=== PATIENT | male | born 1975 | race Caucasian/White ===

== ENCOUNTER 2018-01-02 04:23 | Emergency (ER) | payer BC ==
[2018-01-02 04:30] VITALS: BMI 39.4
[2018-01-02] MEDS ORDERED: NS 1000 ML 1,000 ML ONE ×2 (04:31→05:50)
[2018-01-02] MEDS ORDERED: ZOFRAN INJ 4 MG VIAL ONE (04:31)
[2018-01-02] MEDS ORDERED: NS 1000 ML 1,000 ML IV ONE ×2 (04:31→05:35)
[2018-01-02] MEDS ORDERED: ZOFRAN INJ 4 MG VIAL IVP ONE (04:31)
[2018-01-02] MEDS ORDERED: TORADOL 30 MG VIAL ONE (04:31)
[2018-01-02] MEDS ORDERED: TORADOL 30 MG VIAL IVP ONE (04:31)
[2018-01-02] MEDS ORDERED: DILAUDID INJ ONE (04:42)
[2018-01-02] MEDS ORDERED: DILAUDID INJ IVP ONE (04:42)
[2018-01-02 05:08] LABS: BILIRUBIN,URINE NEGATIVE (NEGATIVE); BLOOD/HEMOGLOBIN,URINE 2+ (NEGATIVE); GLUCOSE, URINE 4+ (NEGATIVE); KETONES,URINE NEGATIVE (NEGATIVE); LEUKOCYTE ESTERASE ,URINE NEGATIVE (NEGATIVE); NITRITES,URINE NEGATIVE (NEGATIVE); PROTEIN,URINE NEGATIVE (NEGATIVE); UROBILINOGEN,URINE NORMAL (NORMAL)
--- NOTE | 2018-01-02 05:22 | CT ---
CT abdomen and pelvis without contrast Indication: Right flank pain Comparison: 01/02/2016 Technique: CT images of the abdomen and pelvis were obtained without contrast. Automatic exposure con trol was utilized. Findings: Aside from minimal atelectasis, the lung bases are clear. No aggressive osseous lesions. Previous cholecystectomy. Within noncontrast limitations, the liver, spleen, stomach, duodenum, pancr eas, and adrenals demonstrate no significant abnormality. Multiple subcentimeter bilateral renal shamika ecting system stones are similar to the prior study. There is minimal right-sided hydroureteronephros is with a 4 mm calculus at the ureterovesicular junction. No left-sided hydronephrosis or left ureter al stone. No significant thickening or dilatation of the lower GI tract. Normal appendix. There is small to mod erate fat containing umbilical hernia. The urinary bladder is mostly collapsed. The rectum and prosta te are unremarkable. No free fluid or adenopathy. Impression: Minimal right hydroureteronephrosis secondary to an obstructing 4 mm UVJ stone. Small bilateral renal stones. Reported By:
[2018-01-02 05:24] LABS: APPEARANCE,URINE CLEAR (CLEAR); BACTERIA,URINE NEGATIVE /HPF (NEGATIVE); COLOR,URINE PALE YELLOW (YELLOW); SQUAMOUS EPITHELIAL CELL,UR FEW /HPF (NEGATIVE)
[2018-01-02] MEDS ORDERED: FLOMAX PO ONE (05:34)
[2018-01-02 05:56] LABS: BASOPHILS % (AUTO) 0.5 % (0.2-1.0); EOSINOPHILS # (AUTO) 0.1 x10^3/uL (0.0-0.2); EOSINOPHILS % (AUTO) 1.7 % (0.9-2.9); HEMATOCRIT 43.8 % (42.0-54.0); HEMOGLOBIN 14.8 g/dL (13.5-18.0); LYMPHOCYTES # (AUTO) 1.8 X10^3/uL (1.3-2.9); MEAN CORPUSCULAR HEMOGLOBIN 28.2 pg (27.0-34.0); MEAN CORPUSCULAR HGB CONC 33.7 g/dL (33.0-35.0); MEAN CORPUSCULAR VOLUME 83.5 fL (80.0-100.0); MEAN PLATELET VOLUME 9.8 fL (7.4-11.0); MONOCYTES # (AUTO) 0.7 x10^3/uL (0.3-0.8); MONOCYTES % (AUTO) 9.7 % (0.0-13.0); NEUTROPHILS # (AUTO) 4.9 x10^3/uL (2.2-4.8); NEUTROPHILS % (AUTO) 64.1 % (42.0-75.0); PLATELET COUNT 164 X10^3/uL (150.0-450.0); RED BLOOD COUNT 5.25 X10^6/uL (4.7-6.0); RED CELL DISTRIBUTION WIDTH 13.7 % (11.6-16.5); WHITE BLOOD COUNT 7.7 X10^3/uL (3.6-10.0)
[2018-01-02 06:05] LABS: ALANINE AMINOTRANSFERASE 44 Units/L (12-78); ALKALINE PHOSPHATASE 146 Units/L (46-116); ASPARTATE AMINO TRANSFERASE 33 Units/L (15-37); BLOOD UREA NITROGEN 9 mg/dL (7-18); CALCIUM 7.7 mg/dL (8.5-10.1); CARBON DIOXIDE 25.9 mmol/L (21-32); CHLORIDE 104 mmol/L (98-107); COR CA(FOR HYPOALB) 8.5 mg/dL (8.5-10.1); COR NA(FOR HYPERGLY) 141 mmol/L (136-145); CREATININE 1.32 mg/dL (0.70-1.30); SODIUM 137 mmol/L (136-145); TOTAL PROTEIN 7.2 g/dL (6.4-8.2); eGFR BLACK RACES > 60 (>60); eGFR NON BLACK RACES > 60 (>60)
--- NOTE | 2018-01-02 06:22 | DR.GENAD ---
HPI - PCP Primary Care Physician: ijeoma yeboah - HPI Comment HPI Comment: PAIN SIMILAR TO PREVIOUS KIDNEY STONE PAIN. DENIES HEMATURIA. - Complaint/Symptoms Chief Complaint Doctors Comments: RIGHT FLANK PAIN TIMES 1HR WITH NAUSEA. Chief Complaint:: right flank pain o/s 1 hr ago, denies hematuria, hx of kidneys stones, n/v - Nurses notes reviewed Nurses Notes Review: Yes - Source History Provided: Patient - Mode of Arrival Mode of Arrival: Ambulatory - Timing Onset of Chief Complaint: 01/02/18 Came on: Suddenly - Duration Duration: Constant Duration: Days - Severity Severity: Moderate PMH - PMH Past Medical History: Yes Past Medical History: Diabetes, Hypertension, Kidney Stones Past Surgical History: Yes Surgical History: Cholecystectomy - Family History History of Family Medical Conditions: Yes Family Medical History: Diabetes Mellitus, Cancer, Coronary Artery Disease, Hypertension - Social History Does patient currently use any type of tobacco product: No Have you used tobacco products in the last 12 months: No Type of Tobacco Use: None Does any household member use tobacco: No Alcohol Use: None Do you use any recreational Drugs:: No Lives With: Family Lives Where: Home - infectious screening Have you traveled outside the country in the last 6 months?: No Isolation: Standard ROS - Review of Systems Constitutional: No Symptoms Reported. negative: Chills, Fever Eyes: No Symptoms Reported ENTM: No Symptoms Reported Respiratoy: No Symptoms Reported Cardiovascular: No Symptoms Reported Gastrointestinal/Abdominal: No Symptoms Reported Genitourinary: No Symptoms Reported Neurological: No Symptoms Reported Musculoskeletal: Back Pain (RT FLANK PAIN) Integumentary: No Symptoms Reported Hematologic/Lymphatic: No Symptoms Reported Endocrine: No Symptoms Reported All Other Systems: Reviewed and Negative PE - Vital Signs Vitals: Pulse Rate [Left Brachial] 74 Pulse Rate 64 Respiratory Rate 18 Blood Pressure [Left Arm] 125/75 Blood Pressure [Right Arm] 137/77 Blood Pressure 144/83 O2 Sat by Pulse Oximetry 95 - General Limitations: No Limitations General Appearance: Alert - Head Head Exam: Normal Inspection - Eyes Eye exam: Normal Appearance - ENT ENT Exam: Normal External Ear Exam External Ear Exam: Normal External Inspection TM/Canal Exam: Bilateral Normal Nose Exam: Normal Nose Exam Mouth Exam: Normal Inspection Throat Exam: Normal Inspection - Neck Neck Exam: Trachea Midline - Chest Chest Inspection: Symmetric Chest Wall Rise - Respiratory Respiratory Exam: Normal Lung Sounds Bilat Respiratory Exam: Bilateral Clear to Auscultation - Cardiovascular Cardiovascular Exam: Regular Rate, Normal Rhythm, Normal Heart Sounds - Abdominal Exam Abdominal Exam: Normal Bowel Sounds, Soft. negative: Tenderness - Extremities Extremities Exam: Normal Inspection - Back Back Exam: (R) CVA Tenderness - Neurologic Neurological Exam: Alert, Oriented X3 - Psychiatric Psychiatric Exam: Normal Affect, Normal Mood - Skin Skin Exam: Normal Color MDM - Differential Diagnosis Differential Diagnosis: KIDNEY STONE, UTI, MUSCULOSKELETAL PAIN Course - Treatment Treatment: SEE ORDERS. - Reevaluation 1st: Improved (IV PAIN MED IN ED.) - Education/Counseling Education/Counseling: Patient, Education Educated On: Diagnosis, Needs for Follow Up ROR - Labs Reviewed Laboratory Results Reviewed?: Yes Result Diagrams: 01/02/18 05:45 01/02/18 05:45 Laboratory: WBC 7.7 X10^3/uL (3.6-10.0) 01/02/18 05:45 RBC 5.25 X10^6/uL (4.7-6.0) 01/02/18 05:45 Hgb 14.8 g/dL (13.5-18.0) 01/02/18 05:45 Hct 43.8 % (42.0-54.0) 01/02/18 05:45 MCV 83.5 fL (80.0-100.0) 01/02/18 05:45 MCH 28.2 pg (27.0-34.0) 01/02/18 05:45 MCHC 33.7 g/dL (33.0-35.0) 01/02/18 05:45 RDW 13.7 % (11.6-16.5) 01/02/18 05:45 Plt Count 164 X10^3/uL (150.0-450.0) 01/02/18 05:45 MPV 9.8 fL (7.4-11.0) 01/02/18 05:45 Neut % (Auto) 64.1 % (42.0-75.0) 01/02/18 05:45 Lymph % (Auto) 24.0 % (21.0-51.0) 01/02/18 05:45 [place] % (Auto) 9.7 % (0.0-13.0) 01/02/18 05:45 Eos % (Auto) 1.7 % (0.9-2.9) 01/02/18 05:45 Baso % (Auto) 0.5 % (0.2-1.0) 01/02/18 05:45 Neut # (Auto) 4.9 x10^3/uL (2.2-4.8) H 01/02/18 05:45 Lymph # (Auto) 1.8 X10^3/uL (1.3-2.9) 01/02/18 05:45 [place] # (Auto) 0.7 x10^3/uL (0.3-0.8) 01/02/18 05:45 Eos # (Auto) 0.1 x10^3/uL (0.0-0.2) 01/02/18 05:45 Baso # (Auto) 0.0 X10^3/uL (0.0-0.1) 01/02/18 05:45 Absolute Nucleated RBC 0.1 /100WBC 01/02/18 05:45 Sodium 137 mmol/L (136-145) 01/02/18 05:45 Corrected Sodium 141 mmol/L (136-145) 01/02/18 05:45 Potassium 4.5 mmol/L (3.5-5.1) 01/02/18 05:45 Chloride 104 mmol/L (98-107) 01/02/18 05:45 Carbon Dioxide 25.9 mmol/L (21-32) 01/02/18 05:45 BUN 9 mg/dL (7-18) 01/02/18 05:45 Creatinine 1.32 mg/dL (0.70-1.30) H 01/02/18 05:45 Est GFR (MDRD) Af Amer > 60 (>60) 01/02/18 05:45 Est GFR (MDRD) Non-Af > 60 (>60) 01/02/18 05:45 Glucose 249 mg/dL (65-99) H 01/02/18 05:45 Calcium 7.7 mg/dL (8.5-10.1) L 01/02/18 05:45 Corrected Calcium 8.5 mg/dL (8.5-10.1) 01/02/18 05:45 Total Bilirubin 0.40 mg/dL (0.2-1.0) 01/02/18 05:45 AST 33 Units/L (15-37) 01/02/18 05:45 ALT 44 Units/L (12-78) 01/02/18 05:45 Alkaline Phosphatase 146 Units/L (46-116) H 01/02/18 05:45 Total Protein 7.2 g/dL (6.4-8.2) 01/02/18 05:45 Albumin 3.0 g/dL (3.4-5.0) L 01/02/18 05:45 Globulin 4.2 g/dL (2.5-4.5) 01/02/18 05:45 Albumin/Globulin Ratio 0.7 Ratio (1.1-2.1) L 01/02/18 05:45 Specimen Type Clean catch urine 01/02/18 04:30 Urine Color Pale yellow (YELLOW) 01/02/18 04:30 Urine Appearance Clear (CLEAR) 01/02/18 04:30 Urine pH 5.0 (5.0 - 8.0) 01/02/18 04:30 Ur Specific [place] 1.020 (1.000-1.030) 01/02/18 04:30 Urine Protein Negative (NEGATIVE) 01/02/18 04:30 Urine Glucose (UA) 4+ (NEGATIVE) 01/02/18 04:30 Urine Ketones Negative (NEGATIVE) 01/02/18 04:30 Urine Occult Blood 2+ (NEGATIVE) 01/02/18 04:30 Urine Nitrite Negative (NEGATIVE) 01/02/18 04:30 Urine Bilirubin Negative (NEGATIVE) 01/02/18 04:30 Urine Urobilinogen Normal (NORMAL) 01/02/18 04:30 Ur Leukocyte Esterase Negative (NEGATIVE) 01/02/18 04:30 Urine RBC 5-10 /HPF (NONE SEEN) 01/02/18 04:30 Urine WBC None seen /HPF (NONE SEEN) 01/02/18 04:30 Ur Squamous Epith Cells Few /HPF (NEGATIVE) 01/02/18 04:30 Urine Bacteria Negative /HPF (NEGATIVE) 01/02/18 04:30 Ur Culture Indicated? No/not indicated 01/02/18 04:30 - XRAY XRAY Interpreted by: Radiologist XRAY Findings: REPORT DISCUSS WITH PATIENT. - Diagnosis Discharge Problem: Ureteral stone, Flank pain, Kidney stone - Discharge Plan Disposition: 01 HOME, SELF-CARE Condition: Stable Prescriptions: Hydrocodone-Acet 7.5 mg/325 mg [[place] 7.5/325 mg Tab] 1 tab PO Q6H PRN #15 tab PRN Reason: Pain Ketorolac Tromethamine [Toradol Tab] 10 mg PO Q8H PRN #20 tab PRN Reason: Pain Tamsulosin HCl [Flomax] 0.4 mg PO DAILY PRN #20 cap PRN Reason: - Follow ups/Referrals Follow ups/Referrals: CLARISSA LLAMAS [REFERRING] - 3 days NFD,None [Primary Care Provider] - 3 days - Instructions Instructions: Kidney Stones, [id number], Flank Pain, Adult, [id number] Additional Instructions: RETURN TO ED IF WORSE. FOLLOW UP WITH UROLOGIST DIAMOND.
[2018-01-02 06:58] VITALS: BP 125/75
== END 2018-01-02 06:58 | disposition home or self-care (01) ==
LOC: ER 04:23
DX: N20.0 Calculus of kidney (principal); N20.1 Calculus of ureter; R10.84 Generalized abdominal pain
CPT/HCPCS: 36415; 74176; 80053; 81001; 85025; 96365; 96367; 96374; 96375; 99283; 99284; A4222; J1170; J1885; J2405

== ENCOUNTER 2018-01-16 16:59 | Emergency (ER) | payer BC ==
[2018-01-16 17:05] VITALS: BP 171/95; BMI 39.7
[2018-01-16] MEDS ORDERED: NS 1000 ML 1,000 ML ONE (18:33)
[2018-01-16] MEDS ORDERED: NS 1000 ML 1,000 ML IV ONE (18:42)
[2018-01-16] MEDS ORDERED: TORADOL 30 MG VIAL IVP ONE (18:42)
[2018-01-16] MEDS ORDERED: ZOFRAN INJ 4 MG VIAL IVP ONE (18:42)
[2018-01-16] MEDS ORDERED: ZOFRAN INJ 4 MG VIAL ONE ×2 (18:44→18:45)
[2018-01-16] MEDS ORDERED: TORADOL 30 MG VIAL ONE (18:45)
--- NOTE | 2018-01-16 18:47 | DR.MBACK ---
HPI - Time Seen Time seen: 18:40 - PCP Primary Care Physician: RADHA DAWKINS - HPI Comment HPI Comment: PAIN STARTED TONIGHT. RECENT KIDNEY STONE. MISS APPOINTMENT THIS WEEK WITH THE UROLOGIST. ALSO HAVE GOUT ATTACK ON MED. THIS ALSO FLARE UP TODAY. NO FEVER OR HEMATURIA OR DYSURIA. - Complaint Chief Complaint Doctors Comments: RIGHT FLANK AND LOWER ABDOMINAL PAIN. Chief Complaint:: PATIENT HAS HAD A KIDNEY STONE FOR TWO WEEKS BUT MISSED HIS APPOINTMENT WITH UROLOGY. HE STATED THE PAIN JUST CAME BACK 1 HOUR AGO. - Reviewed Nurses Notes Review: Yes - Source History Provided: Patient - Mode of Arrival Mode of Arrival: Ambulatory - Timing Onset of Chief Complaint: 01/16/18 - Duration Duration: Constant Duration: Hours - Location Back Pain Location: Left, Flank (LLQ ABD.) Radiation To: None - Severity Severity: Moderate - Quality Quality: Sharp - Context Onset: Spontaneous History of: None - Modifying Factors Worsened By: None - Associated Signs and Symptoms Back Pain Symptoms: Nausea, Abdominal Pain PMH - PMH Past Medical History: Yes Past Medical History: Diabetes, Hypertension, Kidney Stones Past Surgical History: Yes Surgical History: Cholecystectomy - Family History History of Family Medical Conditions: Yes Family Medical History: Diabetes Mellitus, Cancer, Coronary Artery Disease, Hypertension - Social History Does patient currently use any type of tobacco product: No Have you used tobacco products in the last 12 months: No Type of Tobacco Use: None Does any household member use tobacco: No Do you use any recreational Drugs:: No Lives With: Family Lives Where: Home - infectious screening In the last 2 months have you had wt loss of >10#?: NO Have you had fever, night sweats or hemotysis?: No Have you traveled outside the country in the last 6 months?: No Isolation: Standard ROS - Review of Systems Constitutional: No Symptoms Reported Eyes: No Symptoms Reported ENTM: No Symptoms Reported Respiratoy: No Symptoms Reported Cardiovascular: No Symptoms Reported Gastrointestinal/Abdominal: Abdominal Pain, Nausea Genitourinary: Pain, Other (LT FLANK PAIN). negative: Dysuria, Hematuria Neurological: No Symptoms Reported Musculoskeletal: Foot Integumentary: No Symptoms Reported Hematologic/Lymphatic: No Symptoms Reported Endocrine: No Symptoms Reported All Other Systems: Reviewed and Negative PE - Vital Signs Vitals: Temperature 97.7 F Pulse Rate 87 Respiratory Rate 20 Blood Pressure [Left Arm] 125/75 Blood Pressure [Right Arm] 137/77 Blood Pressure 171/95 O2 Sat by Pulse Oximetry 99 - General Limitations: No Limitations General Appearance: Alert - Head Head Exam: Normal Inspection - Eyes Eye exam: Normal Appearance - ENT ENT Exam: Normal External Ear Exam - Chest Chest Inspection: Symmetric Chest Wall Rise - Respiratory Respiratory Exam: Normal Lung Sounds Bilat Respiratory Exam: Bilateral Clear to Auscultation - Cardiovascular Cardiovascular Exam: Regular Rate, Normal Rhythm, Normal Heart Sounds - Abdominal Exam Abdominal Exam: Normal Bowel Sounds, Soft, Tenderness Abdominal Tenderness: LLQ - Rectal Rectal Exam: Deferred - Genitourinary Exam: Male: Deferred - Extremities Extremities Exam: Tenderness (FOOT INFLAME.) - Back Back Exam: Normal Inspection - Neurological Neurological Exam: Alert, Oriented X3 - Psychiatric Psychiatric Exam: Normal Affect, Normal Mood - Skin Skin Exam: Normal Color MDM - Additional Information Additional Information Obtained From: Family (GOUT) - Differential Diagnosis Differential Diagnosis: Pyelonephritis, Urinary Obstruction, Urolithiasis Course - Treatment Treatment: SEE ORDERS. IV FLUIDS AND IV MEDS IN ED. - Reevaluation 1st: Improved - Education/Counseling Education/Counseling: Patient, Family, Education Educated On: Diagnosis, Needs for Follow Up ROR - Labs Reviewed Laboratory Results Reviewed?: Yes Result Diagrams: 01/16/18 18:55 01/16/18 18:55 Laboratory: WBC 10.6 X10^3/uL (3.6-10.0) H 01/16/18 18:55 RBC 5.46 X10^6/uL (4.7-6.0) 01/16/18 18:55 Hgb 15.3 g/dL (13.5-18.0) 01/16/18 18:55 Hct 45.3 % (42.0-54.0) 01/16/18 18:55 MCV 82.9 fL (80.0-100.0) 01/16/18 18:55 MCH 28.0 pg (27.0-34.0) 01/16/18 18:55 MCHC 33.8 g/dL (33.0-35.0) 01/16/18 18:55 RDW 13.5 % (11.6-16.5) 01/16/18 18:55 Plt Count 186 X10^3/uL (150.0-450.0) 01/16/18 18:55 MPV 9.1 fL (7.4-11.0) 01/16/18 18:55 Neut % (Auto) 53.1 % (42.0-75.0) 01/16/18 18:55 Lymph % (Auto) 33.7 % (21.0-51.0) 01/16/18 18:55 [place] % (Auto) 10.0 % (0.0-13.0) 01/16/18 18:55 Eos % (Auto) 2.5 % (0.9-2.9) 01/16/18 18:55 Baso % (Auto) 0.7 % (0.2-1.0) 01/16/18 18:55 Neut # (Auto) 5.6 x10^3/uL (2.2-4.8) H 01/16/18 18:55 Lymph # (Auto) 3.6 X10^3/uL (1.3-2.9) H 01/16/18 18:55 [place] # (Auto) 1.1 x10^3/uL (0.3-0.8) H 01/16/18 18:55 Eos # (Auto) 0.3 x10^3/uL (0.0-0.2) H 01/16/18 18:55 Baso # (Auto) 0.1 X10^3/uL (0.0-0.1) 01/16/18 18:55 Absolute Nucleated RBC 0.1 /100WBC 01/16/18 18:55 Sodium 142 mmol/L (136-145) 01/16/18 18:55 Corrected Sodium 143 mmol/L (136-145) 01/16/18 18:55 Potassium 3.9 mmol/L (3.5-5.1) 01/16/18 18:55 Chloride 106 mmol/L (98-107) 01/16/18 18:55 Carbon Dioxide 25.5 mmol/L (21-32) 01/16/18 18:55 BUN 9 mg/dL (7-18) 01/16/18 18:55 Creatinine 1.38 mg/dL (0.70-1.30) H 01/16/18 18:55 Est GFR (MDRD) Af Amer > 60 (>60) 01/16/18 18:55 Est GFR (MDRD) Non-Af 60 (>60) 01/16/18 18:55 Glucose 128 mg/dL (65-99) H 01/16/18 18:55 Uric Acid 3.4 mg/dL (3.5-7.2) L 01/16/18 18:55 Calcium 8.3 mg/dL (8.5-10.1) L 01/16/18 18:55 Corrected Calcium TNP 01/16/18 18:55 Total Bilirubin 0.40 mg/dL (0.2-1.0) 01/16/18 18:55 AST 65 Units/L (15-37) H 01/16/18 18:55 ALT 71 Units/L (12-78) 01/16/18 18:55 Alkaline Phosphatase 169 Units/L (46-116) H 01/16/18 18:55 Total Protein 7.8 g/dL (6.4-8.2) 01/16/18 18:55 Albumin 3.4 g/dL (3.4-5.0) 01/16/18 18:55 Globulin 4.4 g/dL (2.5-4.5) 01/16/18 18:55 Albumin/Globulin Ratio 0.8 Ratio (1.1-2.1) L 01/16/18 18:55 Specimen Type Clean catch urine 01/16/18 20:33 Urine Color Yellow (YELLOW) 01/16/18 20:33 Urine Appearance Clear (CLEAR) 01/16/18 20:33 Urine pH 5.0 (5.0 - 8.0) 01/16/18 20:33 Ur Specific [place] 1.015 (1.000-1.030) 01/16/18 20:33 Urine Protein Negative (NEGATIVE) 01/16/18 20:33 Urine Glucose (UA) Negative (NEGATIVE) 01/16/18 20:33 Urine Ketones Negative (NEGATIVE) 01/16/18 20:33 Urine Occult Blood 5+ (NEGATIVE) 01/16/18 20:33 Urine Nitrite Negative (NEGATIVE) 01/16/18 20:33 Urine Bilirubin Negative (NEGATIVE) 01/16/18 20:33 Urine Urobilinogen Normal (NORMAL) 01/16/18 20:33 Ur Leukocyte Esterase Negative (NEGATIVE) 01/16/18 20:33 Urine RBC 10-20 /HPF (NONE SEEN) 01/16/18 20:33 Urine WBC 0-2 /HPF (NONE SEEN) 01/16/18 20:33 Ur Squamous Epith Cells Few /HPF (NEGATIVE) 01/16/18 20:33 Urine Bacteria Negative /HPF (NEGATIVE) 01/16/18 20:33 Ur Culture Indicated? No/not indicated 01/16/18 20:33 - XRAY XRAY Interpreted by: Radiologist XRAY Findings: REPORT DISCUSS WITH PATIENT. - Diagnosis Discharge Problem: Flank pain, Kidney stone Gout attack Qualifiers: Gout site: toe Gout etiology: unspecified cause Laterality: right Qualified Code(s): M10.9 - Gout, unspecified - Discharge Plan Disposition: HOME, SELF-CARE Condition: Stable Prescriptions: Hydrocodone-Acet 7.5 mg/325 mg [[place] 7.5/325 mg Tab] 1 tab PO Q6H PRN #15 tab PRN Reason: Pain Ketorolac Tromethamine [Toradol Tab] 10 mg PO Q8H PRN #12 tab PRN Reason: Pain Ondansetron [Zofran ODT 8 mg] 8 mg PO Q8H PRN #12 tab PRN Reason: Nausea/Vomiting Tamsulosin HCl [Flomax] 0.4 mg PO DAILY #30 cap - Follow ups/Referrals Follow ups/Referrals: MIRIAN DAWKINS [Primary Care Provider] - 3 days PATSY DISLA [CONSULTING PHYSICIAN] - 01/19/18 - Instructions Instructions: Kidney Stones, [id number], Flank Pain, Adult, [id number]
[2018-01-16 19:04] LABS: BASOPHILS # (AUTO) 0.1 X10^3/uL (0.0-0.1); BASOPHILS % (AUTO) 0.7 % (0.2-1.0); EOSINOPHILS # (AUTO) 0.3 x10^3/uL (0.0-0.2); EOSINOPHILS % (AUTO) 2.5 % (0.9-2.9); HEMATOCRIT 45.3 % (42.0-54.0); HEMOGLOBIN 15.3 g/dL (13.5-18.0); LYMPHOCYTES # (AUTO) 3.6 X10^3/uL (1.3-2.9); LYMPHOCYTES % (AUTO) 33.7 % (21.0-51.0); MEAN CORPUSCULAR HGB CONC 33.8 g/dL (33.0-35.0); MEAN CORPUSCULAR VOLUME 82.9 fL (80.0-100.0); MEAN PLATELET VOLUME 9.1 fL (7.4-11.0); MONOCYTES # (AUTO) 1.1 x10^3/uL (0.3-0.8); NEUTROPHILS # (AUTO) 5.6 x10^3/uL (2.2-4.8); NEUTROPHILS % (AUTO) 53.1 % (42.0-75.0); PLATELET COUNT 186 X10^3/uL (150.0-450.0); RED BLOOD COUNT 5.46 X10^6/uL (4.7-6.0); RED CELL DISTRIBUTION WIDTH 13.5 % (11.6-16.5); WHITE BLOOD COUNT 10.6 X10^3/uL (3.6-10.0)
[2018-01-16 19:22] LABS: ALANINE AMINOTRANSFERASE 71 Units/L (12-78); ALBUMIN 3.4 g/dL (3.4-5.0); ALKALINE PHOSPHATASE 169 Units/L (46-116); ASPARTATE AMINO TRANSFERASE 65 Units/L (15-37); BLOOD UREA NITROGEN 9 mg/dL (7-18); CALCIUM 8.3 mg/dL (8.5-10.1); CARBON DIOXIDE 25.5 mmol/L (21-32); CHLORIDE 106 mmol/L (98-107); COR NA(FOR HYPERGLY) 143 mmol/L (136-145); CREATININE 1.38 mg/dL (0.70-1.30); SODIUM 142 mmol/L (136-145); TOTAL PROTEIN 7.8 g/dL (6.4-8.2); eGFR BLACK RACES > 60 (>60); eGFR NON BLACK RACES 60 (>60)
--- NOTE | 2018-01-16 19:22 | CT ---
Indication: Pain Exam: CT abdomen and pelvis without contrast. Technique: Axial spiral images were obtained from lung bases through the pubic symphysis without cont rast. Automated does control was utilized. Coronal and sagittal multiplanar reconstructions were perf ormed. Comparison: 01/02/2018 Findings: The hazy subsegmental opacities along the lung bases posteriorly which is unchanged the crow er is normal size with fatty replacement throughout. The gallbladder has been removed and there are p unctate air collections in the central biliary tree with smaller amounts of air scattered in the comm on bile duct distally which was not seen on the prior studies . There is no significant biliary duct dilatation. The pancreas is atrophic with no pancreatic mass or inflammation. The adrenals are normal . The kidneys are normal size with numerous renal stones scattered in both kidneys with the largest m easuring 7 mm along the upper pole the right which is unchanged. There are several small stones scatt ered in the left kidney measuring 3-4 mm which are unchanged. No hydronephrosis is seen. There is sli ght prominence of the right ureter proximally which unchanged with a 5 mm stone lodged in the distal right ureter, 1-2 cm above the bladder wall . . There are some small 3-4 mm calcifications along the bladder wall posteriorly which are more apparent. The prostate gland is mildly enlarged. There is a 2 cm umbilical hernia which is unchanged with no bowel loops in the hernia . No adenopathy or ascites is seen. The appendix is not well visualized. The bones are intact. Impression: 5 mm stone lodged in the distal right ureter which may represent a recurrent stone or possible stone which has migrated proximally in the ureter. The stone is only causing minimal obstruction which is n ot significantly changed. Recommend clinical follow-up. Multiple renal stones bilaterally with no significant hydronephrosis which is unchanged. Probable small bladder stones which are more apparent. Previous cholecystectomy and a small amount of pneumobilia which is more apparent and is probably jus t due to previous manipulation of the duct common duct . Recommend clinical correlation correlating w ith lab values. Mild discoid atelectasis or scarring along the lung bases . Small umbilical hernia which is unchanged. Reported By:
[2018-01-16 20:50] LABS: BILIRUBIN,URINE NEGATIVE (NEGATIVE); BLOOD/HEMOGLOBIN,URINE 5+ (NEGATIVE); GLUCOSE, URINE NEGATIVE (NEGATIVE); KETONES,URINE NEGATIVE (NEGATIVE); LEUKOCYTE ESTERASE ,URINE NEGATIVE (NEGATIVE); NITRITES,URINE NEGATIVE (NEGATIVE); PROTEIN,URINE NEGATIVE (NEGATIVE); UROBILINOGEN,URINE NORMAL (NORMAL)
[2018-01-16 21:00] LABS: APPEARANCE,URINE CLEAR (CLEAR); BACTERIA,URINE NEGATIVE /HPF (NEGATIVE); COLOR,URINE YELLOW (YELLOW); SQUAMOUS EPITHELIAL CELL,UR FEW /HPF (NEGATIVE)
== END 2018-01-16 21:11 | disposition home or self-care (01) ==
LOC: ER 17:08
DX: N20.0 Calculus of kidney (principal); R10.32 Left lower quadrant pain; M10.9 Gout, unspecified; J98.11 Atelectasis
CPT/HCPCS: 36415; 74176; 80053; 81001; 84550; 85025; 96365; 96367; 96374; 96375; 99283; A4222; J1885; J2405